=== PATIENT | male | born 1930 | race Caucasian/White ===

== ENCOUNTER 2017-03-31 07:55 | Emergency (ER) | payer MEDICARE, OTHER ==
[2017-03-31 08:01] VITALS: BP 164/79
[2017-03-31] MEDS ORDERED: DEXAMETHASONE 10 MG/ML VIAL PO STA (08:24)
--- NOTE | 2017-03-31 08:26 | ED Physician Documentation ---
PD HPI BACK PAIN - Stated complaint Stated Complaint: BACK PAIN - Chief complaint Chief Complaint: Back Pain - History obtained from History obtained from: Patient - History of Present Illness Timing - onset: How many days ago (5) Timing - duration: Days (5) Timing - details: Gradual onset, Still present Location: Lower, Right Quality: Pain, Spasm, Sharp, Similar to prior episodes Associated symptoms: No: Fever, Weakness, Numbness, Incontinent of urine, Unable to urinate, Hematuria, Incontinent of stool Improves with: Rest, Position Worsened by: Movement Similar symptoms before: Diagnosis (sciatica) Recently seen: Not recently seen - Additional information Additional information: 86 y/o male has pain radiating down the right leg to the lateral right calf and starting in the low right side of the back. This is similar to what he has had over the past 10 years in episodes usually lasting about 5 days. Review of Systems Constitutional: denies: Fever Ears: denies: Ear pain Nose: denies: Congestion Respiratory: denies: Cough GI: denies: Abdominal Pain, Nausea, Vomiting : denies: Dysuria, Frequency Skin: denies: Rash Musculoskeletal: reports: Back pain, Extremity pain. denies: Neck pain Neurologic: denies: Generalized weakness, Focal weakness, Numbness PD PAST MEDICAL HISTORY - Past Medical History Cardiovascular: None Respiratory: None Endocrine/Autoimmune: None GI: None : None HEENT: None Psych: None Musculoskeletal: None Derm: None - Past Surgical History General: Colonoscopy - Present Medications Home Medications: Ambulatory Orders Medication Instructions Recorded Confirmed Doxazosin [Cardura] 4 mg PO DAILY 04/19/14 03/31/17 Cyclobenzaprine [Flexeril] 10 mg PO TID PRN #20 tablet 03/31/17 HYDROcod/ACETAM 5/325 [[place] 5/325] 1 - 2 ea PO Q6H PRN #15 tablet 03/31/17 - Allergies Allergies/Adverse Reactions: Allergies Allergy/AdvReac Type Severity Reaction Status Date / Time No Known Drug Allergies Allergy Verified 03/31/17 08:01 - Social History Does the pt smoke?: No Smoking Status: Never smoker PD ED PE NORMAL - Vitals Vital signs reviewed: Yes (tachy and hypertensive ) - General General: Alert and oriented X 3, No acute distress, Well developed/nourished - HEENT HEENT: Atraumatic, PERRL - Neck Neck: Supple, no meningeal sign - Respiratory Respiratory: No respiratory distress - Back Back: No CVA TTP, No spinal TTP, Other (There is focal tenderness to the right SI joint area and radiating into the sciatic notch. ) - Derm Derm: Normal color, Warm and dry, No rash - Extremities Extremities: No deformity, No edema - Neuro Neuro: No motor deficit, No sensory deficit - Psych Psych: Normal mood, Normal affect Results - Vitals Vitals: Vital Signs - 24 hr 03/31/17 08:00 Temperature 36.0 C L Heart Rate 108 H Respiratory 18 Rate Blood Pressure 164/79 H O2 Saturation 99 Oxygen O2 Source Room air PD MEDICAL DECISION MAKING - ED course Complexity details: reviewed old records, considered differential, d/w patient ED course: 86 y/o male with a history of symptomatic sciatica has come to the ED this morning with right sided symptoms similar to prior. He is given decadron and we will provide a does of pain medication for acute pain. Departure - Departure Disposition: 01 Home, Self Care Clinical Impression: Sciatica Qualifiers: Laterality: right Qualified Code(s): M54.31 - Sciatica, right side Condition: Stable Instructions: ED Sciatica Follow-Up: Enrique Greenwood MD [Primary Care Provider] - Prescriptions: Cyclobenzaprine [Flexeril] 10 mg PO TID PRN #20 tablet PRN Reason: Spasms HYDROcod/ACETAM 5/325 [[place] 5/325] 1 - 2 ea PO Q6H PRN #15 tablet PRN Reason: Pain
[2017-03-31] MEDS ORDERED: DEXAMETHASONE 10 MG/ML VIAL ONE (08:27)
[2017-03-31] MEDS ORDERED: CHERRY SYRUP 10 ML UDC PO ONE (08:27)
== END 2017-03-31 08:33 | disposition home or self-care (01) ==
LOC: ED 07:55
DX: M54.41 Lumbago with sciatica, right side (principal)
CPT/HCPCS: 99283; A9270